=== PATIENT | female | born 1980 | race Two or more races ===

== ENCOUNTER 2018-05-05 21:33 | Emergency (ER) | payer OTHER ==
[~2018-05-05] VITALS: Ht 170.2 cm; Wt 81.6 kg
[2018-05-06 04:45] VITALS: BP 136/88
== END 2018-05-06 05:31 | disposition home or self-care (01) ==
LOC: ER 21:38
DX: S71.132A Puncture wound without foreign body, left thigh, initial encounter (principal); X95.01XA Assault by airgun discharge, initial encounter; Y93.89 Activity, other specified; Y99.8 Other external cause status; Y92.89 Other specified places as the place of occurrence of the external cause
CPT/HCPCS: 73060

== ENCOUNTER 2023-12-12 00:56 | Emergency (ER) | payer OTHER ==
[~2023-12-12] VITALS: Ht 162.6 cm; Wt 97.7 kg
[2023-12-12 01:54] LABS: Basophils # (auto) 0.1 10 ^3/uL (0-0.2); Basophils % (auto) 1.3 % (0.0-2.0); Eosinophils # (auto) 0.1 10 ^3/uL (0-0.8); Eosinophils % (auto) 1.3 % (0.0-7.0); Hematocrit 35.2 % (36.0-46.0); Hemoglobin 10.7 g/dL (12.2-16.2); Lymphocytes # (auto) 1.5 10 ^3/uL (0.4-5.4); Lymphocytes % (auto) 19.8 % (10.0-50.0); Mean Corpuscular Hemoglobin 20.2 pg (28.0-32.0); Mean Corpuscular Hgb Conc. 30.3 g/dL (32.0-36.0); Mean Corpuscular Volume 66.8 fL (80.0-100.0); Monocytes # (auto) 0.9 10 ^3/uL (0-1.3); Neutrophils # (auto) 4.9 10 ^3/uL (1.6-8.6); Neutrophils % (auto) 65.6 % (37.0-80.0); Red Blood Cells 5.27 10^6/uL (4.0-5.20); White Blood Cell 7.5 10^3/uL (4.4-10.8)
[2023-12-12 01:59] LABS: Albumin 4.4 g/dL (3.2-4.8); Alkaline Phosphatase 104 U/L (46-116); Anion Gap 6 (5-15); Aspartate Aminotransferase 22 U/L (13-40); BUN/Creatinine Ratio 8.5 (10.0-20.0); Blood Alcohol < 3.0 mg/dL (<10); Blood Urea Nitrogen 6 mg/dL (9-23); Calcium 9.1 mg/dL (8.5-10.1); Carbon Dioxide 25 mmol/L (20-30); Chloride 108 mmol/L (98-107); Glucose 103 mg/dL (74-106); Potassium 3.8 mmol/L (3.5-5.1); Sodium 139 mmol/L (136-145)
[2023-12-12 01:59] LABS: Amphetamine Screen, Urine Pos (NEGATIVE); Barbiturate Scree,Urine Neg (NEGATIVE); Benzodiazephine Screen, Urine Neg (NEGATIVE); Cannabinoid Screen, Urine Pos (NEGATIVE); Cocaine Screen, Urine Neg (NEGATIVE); Opiate Scree,Urine Neg (NEGATIVE); Phencyclidine Screen, Urine Neg (NEGATIVE)
[2023-12-12 02:00] LABS: Bilirubin, Total 0.5 mg/dL (0.2-1.0); Total Protein 6.9 g/dL (5.7-8.2)
[2023-12-12 02:12] LABS: Alanine Aminotransferase < 9 U/L (7-40)
[2023-12-12 02:20] LABS: Urine Bacteria FEW /hpf (None Seen); Urine Blood Negative /uL (Negative); Urine Clarity Turbid (Clear); Urine Color Light-Yellow (Yellow); Urine Mucus FEW (None Seen); Urine Protein, UAD TRACE (Negative); Urine Specific Gravity 1.026 (1.001-1.035); Urine Urobilinogen Normal (Negative); Urine WBC 4 /hpf (0 - 5); Urine pH 6.5 (5.0-9.0)
[2023-12-12 02:30] LABS: Anisocytosis Slight; Hypochromia Marked; Large Platelets FEW; Ovalocytes FEW; Platelet Estimate Increased
[2023-12-12] MEDS ORDERED: DEX4T PO (04:55)
[2023-12-12 05:47] VITALS: BP 145/95; RESP 16; TEMP 97.9; O2SAT 100
[2023-12-12] MEDS: PANTOPRAZOLE 40 MG TAB PO ONE (05:49)
[2023-12-12] MEDS: ASPirin 81 mg TAB PO ONE (05:49)
[2023-12-12] MEDS: DexAMETHasone 4 MG TAB PO ONE (05:50)
[2023-12-12] MEDS: LORazepam 0.5 MG TAB PO ONE (05:50)
[2023-12-12 06:09] VITALS: PULSE 65
== END 2023-12-12 06:11 | disposition home or self-care (01) ==
LOC: ER 00:56
DX: R20.0 Anesthesia of skin (principal); G35 Multiple sclerosis
CPT/HCPCS: 36415; 70450; 71045; 80053; 80307; 80320; 81001; 81025; 82962; 83735; 83880; 84484; 85025; 93005; 99285; J8540